=== PATIENT | male | born 1955 | race Caucasian/White ===

== ENCOUNTER 2021-07-15 20:08 | Emergency (ER) | payer MEDICARE ==
[~2021-07-15] VITALS: Ht 172.7 cm; Wt 75.0 kg
[2021-07-15 20:12] VITALS: BP 142/89
== END 2021-07-16 00:10 | disposition left against medical advice (07) ==
LOC: ER 20:09
DX: S01.312A Laceration without foreign body of left ear, initial encounter (principal); Z53.21 Procedure and treatment not carried out due to patient leaving prior to being seen by health care provider; X58.XXXA Exposure to other specified factors, initial encounter; Y93.9 Activity, unspecified; Y92.9 Unspecified place or not applicable; Y99.9 Unspecified external cause status

== ENCOUNTER 2023-03-09 05:12 | Emergency (ER) | payer MEDICARE ==
[~2023-03-09] VITALS: Ht 172.7 cm; Wt 77.3 kg
[2023-03-09] MEDS ORDERED: SULF1TAB49 PO (07:41)
== END 2023-03-09 07:48 | disposition home or self-care (01) ==
LOC: ER 05:12
DX: M79.604 Pain in right leg (principal); F17.210 Nicotine dependence, cigarettes, uncomplicated; Z79.899 Other long term (current) drug therapy; Z86.718 Personal history of other venous thrombosis and embolism
CPT/HCPCS: 93971; 99284